=== PATIENT | male | born 1950 | race Caucasian/White ===

== ENCOUNTER → 2017-01-08 | Outpatient (CLI) | payer MEDICARE ==
[~2017-01-08] MED LIST: DOXY50 PO; GLUC500T4 PO; MELO7.5T27 PO; MULTTAB67 PO; TURM500C3 PO; VITA1000 PO
[2017-01-08 12:13] LABS: AUTOMATED NEUTROPHIL # 3.1 TH/MM3 (1.8-7.7); BASOPHIL % 0.6 % (0.0-2.0); EOSINOPHIL # 0.1 TH/MM3 (0-0.4); EOSINOPHIL % 2.2 % (0.0-4.0); HEMATOCRIT 47.5 % (39.0-51.0); HEMO FLAGS DIFF FINAL; LYMPH % 28.8 % (9.0-44.0); LYMPHOCYTE # 1.4 TH/MM3 (1.0-4.8); MEAN CELL VOLUME 94.7 FL (80.0-100.0); MEAN CORPUSCULAR HEMOGLOBIN 31.9 PG (27.0-34.0); MEAN CORPUSCULAR HGB CONC 33.7 % (32.0-36.0); MONO % 8.6 % (0.0-8.0); NEUT % 59.8 % (16.0-70.0); PLATELET COUNT 280 TH/MM3 (150-450); RED BLOOD COUNT 5.02 MIL/MM3 (4.50-5.90); RED CELL DISTRIBUTION WIDTH 12.1 % (11.6-17.2)
== END ==
LOC: PHPRE 11:23
PROVIDERS: ATTEND Orthopaedic Surgery
DX: Z01.812 Encounter for preprocedural laboratory examination (principal); S83.242A Other tear of medial meniscus, current injury, left knee, initial encounter; X58.XXXA Exposure to other specified factors, initial encounter
CPT/HCPCS: 36415; 85025

== ENCOUNTER → 2017-01-18 | Day surgery (SDC) | payer MEDICARE ==
[~2017-01-18] VITALS: Ht 172.7 cm; Wt 77.0 kg
[~2017-01-18] MED LIST changes: +ACETAMINOPHEN 1000 MG/100 ML 100 ML IV ONE; +BUPIVACAINE/EPINEPHRINE 0.5% PF 10 ML VIAL ONE; +CHLORHEXIDINE GLUCONATE 2 % 1 PACK (2 CLOTHS) TOPICAL PRN; +CHLORHEXIDINE GLUCONATE 4% SOLN 120 ML BTL TOPICAL SCH; +DEXAMETHASONE SOD PHOS 4 MG/ML VIAL ONE; +FAMOTIDINE 20 MG/2 ML VIAL ONE; +INSULIN HUMAN REGULAR 1,000 UNITS/10 ML VIAL SQ PRN; +LACTATED RINGER'S 1000 ML IV PRN; +METOPROLOL TARTRATE 25 MG TAB PO PRN; +MIDAZOLAM HCL 2 MG/2 ML VIAL ONE; +POVIDONE IODINE 5% (ANTISEPSIS KIT) 4 APPLICATIONS EACH NARE PRN; +SODIUM CHLORID 0.9% 500 ML IV PRN; +TRIAMCINOLONE ACETONIDE 40 MG/ML VIAL ONE
[2017-01-18 08:52] VITALS: PULSE 59
[2017-01-18 10:15] VITALS: BP 117/68; PULSE 72; RESP 16; TEMP 97.5; O2SAT 96
--- NOTE | 2017-01-18 18:17 | MP ---
cc: ROCAEL GONZALEZ MD DATE OF SURGERY 01/18/[address] Tom Gonzalez PREOPERATIVE DIAGNOSIS Tear medial meniscus left knee joint. POSTOPERATIVE DIAGNOSIS 1. Osteoarthritis left knee joint with chondromalacia 2. Tear complex medial meniscus. PROCEDURE Arthroscopic subtotal medial meniscectomy with chondroplasty of medial compartment and chondroplasty of the anterior compartment. PROCEDURE IN DETAIL The patient was placed on the operating table in the supine position and the left knee was prepped and draped in usual sterile fashion. A time-out was called and the patient's name, location and procedure fully verified. An Esmarch bandage was used to exsanguinate the left lower extremity and a pneumatic tourniquet was inflated to 300. An anterolateral portal was used for introduction of the scope and a systematic examination of the knee joint revealed some chondromalacia and arthritis type 1 along the patella and surrounding synovitis. The intercondylar fossa did reveal considerable synovitis as well. Ligaments were intact. The medial compartment revealed complex tearing of the posterior horn all the way to the middle one third. The lateral compartment was unremarkable. The scope was placed back into the medial compartment. An anteromedial portal was used for instrumentation and an aggressive meniscal resector was utilized to remove the complex tearing retaining the intact fibers. Surrounding synovectomy was performed. The scope was then placed back into the anterior compartment where the patella was also shaved with a chondroplasty utilizing the same meniscal resector. The surrounding synovectomy was also performed. After thorough irrigation, the joint was aspirated of all fluid and then all instruments were removed. Simple suture on both wounds was applied. A lateral intra-articular injection was done through the lateral portal utilizing 10 mL of 0.5% Marcaine with epinephrine along with 40 mg of Kenalog. Xeroform gauze was applied over the wounds and a bulky dressing applied over this. Tourniquet was deflated and examination of foot revealed adequate return of circulation. This procedure was tolerated well and the patient was transferred to the recovery room in satisfactory condition. Estimated blood loss was nil. Rocael Gonzalez MD [facility]/ /8:57 AM /6:12 PM
== END | disposition home or self-care (01) ==
LOC: PHSDC 06:06 → EDUNIT# 08:00
PROVIDERS: ATTEND Orthopaedic Surgery
DX: S83.232A Complex tear of medial meniscus, current injury, left knee, initial encounter (principal); M94.262 Chondromalacia, left knee; M17.12 Unilateral primary osteoarthritis, left knee
CPT/HCPCS: 01400; 29881; J0131; J1100; J2250; J3301; J7120